=== PATIENT | male | born 1985 | race Caucasian/White ===

== ENCOUNTER 2016-12-25 12:09 | Observation (INO) | payer OTHER ==
[2016-12-25] VITALS (10 sets, daily range): BP systolic 106–136; BP diastolic 54–78; PULSE 78–99; RESP 15–20; Ht 177.8 cm; Wt 108.2 kg
[~2016-12-25] VITALS: Ht 177.8 cm; Wt 108.2 kg
--- NOTE | 2016-12-25 06:33 | HPN ---
Date/Time of Note Date/Time of Note DATE: 12/25/16 TIME: 06:33 Interval H&P Admission Note Pt. seen H&P reviewed: No system changes CRISTINA PATRICK MD Dec 25, 2016 06:33
[~2016-12-25 12:09] MED LIST: morphine 2 MG INJ IV PRN
[2016-12-25] MEDS ORDERED: GLYCOPYRROLATE 0.4 MG INJ ONE (14:56)
[2016-12-25] MEDS ORDERED: CEFAZOLIN 1 GM INJ ONE (14:57)
[2016-12-25] MEDS ORDERED: NEOSTIGMINE 3 MG/3 ML SYRINGE ONE (14:57)
[2016-12-25] MEDS ORDERED: PROPOFOL 20 ML ONE (14:57)
[2016-12-25] MEDS ORDERED: FENTAnyl 50 MCG/ML VIAL ONE ×5 (14:57→18:56)
[2016-12-25] MEDS ORDERED: ONDANSETRON 4 MG INJ ONE ×2 (14:57→18:56)
[2016-12-25] MEDS ORDERED: DEXAMETHASONE 4 MG/ML 1 ML INJ ONE (14:57)
[2016-12-25] MEDS ORDERED: ROCURONIUM 50 MG INJ ONE (14:57)
[2016-12-25] MEDS ORDERED: MIDAZOLAM 1 MG/ML 2 ML INJ ONE (14:57)
[2016-12-25] MEDS ORDERED: ROPIVACAINE 0.5 % 30 ML VIAL ONE (16:13)
[2016-12-25] MEDS ORDERED: SUGAMMADEX SODIUM 200 MG/2 ML VIAL IV ONE (18:24)
[2016-12-25] MEDS ORDERED: MEPERIDINE 25 MG INJ ONE (18:56)
[2016-12-25] MEDS ORDERED: DIPHENHYDRAMINE 50 MG INJ ONE (19:45)
[2016-12-25] MEDS ORDERED: KETOROLAC 30 MG INJ ONE (19:45)
[2016-12-25] MEDS ORDERED: OXYCODONE/ACETAMINOPHEN (5/325) TAB ONE (19:51)
[2016-12-25] MEDS ORDERED: oxyCODONE (CR) 10 MG TAB [oxyCONTIN] PO ONE (19:53)
[2016-12-25] MEDS ORDERED: morphine (1 MG/ML) 10ML SYRINGE IV ONE (20:09)
[2016-12-25] MEDS ORDERED: MOXIFLOXACIN 0.5% 3 ML OPH BOTH EYES STA (21:46)
[2016-12-25] MEDS ORDERED: TETRACAINE 0.5% 4 ML OPH BOTH EYES STA (21:46)
[2016-12-25] MEDS ORDERED: HYDROmorphONE 0.2 MG/ML PCA ONE (22:21)
[2016-12-25] MEDS ORDERED: DIPHENHYDRAMINE 50 MG INJ IV PRN (22:30)
[2016-12-25] MEDS ORDERED: NALOXONE (0.4 MG/ML) INJ IV PRN (22:30)
[2016-12-25] MEDS ORDERED: TETRACAINE 0.5% 4 ML OPH BOTH EYES PRN (22:30)
[2016-12-25] MEDS ORDERED: TRIMETHOBENZAMIDE 100 MG/ML VIAL IM PRN (22:30)
[2016-12-25] MEDS ORDERED: HYDROmorphONE 0.5 MG/0.5 ML SYG IV PRN ×2 (22:30)
[2016-12-25] MEDS ORDERED: ONDANSETRON 4 MG INJ IV PRN (22:30)
[2016-12-25] MEDS ORDERED: HYDROmorphONE 0.2 MG/ML PCA IV SCH (22:30)
[2016-12-25] MEDS ORDERED: CEFAZOLIN 1 GM/50 ML (PMX) 50 ML IVPB SCH (23:49)
[2016-12-26] VITALS (7 sets, daily range): BP systolic 114–135; BP diastolic 55–80; PULSE 93–99; RESP 18–20
[2016-12-26] MEDS: ERYTHROMYCIN 1 GM OPH OINT RIGHT EYE SCH ×5 (01:01→20:58)
[2016-12-26] MEDS: CEFAZOLIN 1 GM/50 ML (PMX) 50 ML IVPB SCH ×3 (05:27→20:57)
--- NOTE | 2016-12-26 06:59 | OPR ---
Date/Time of Note Date/Time of Note DATE: 12/25/16 TIME: 20:48 Operative Report Procedure Date: Dec 25, 2016 Preoperative Diagnosis Left ankle Maisonneuve fracture dislocation Postoperative Diagnosis Left ankle Maisonneuve fracture dislocation left ankle Left ankle Loose chondral fragment from the posterior lateral tibial plafond Operation/Procedure Performed Left ankle arthroscopy with extensive debridement Left ankle arthroscopy with loose body removal Left ankle open reduction internal fixation of syndesmosis Surgeon Holden Patrick MD Smoking Pipe Mounter None Anesthesia Type: general, other (Popliteal block) Anesthesiologist: Isaias Guzman M.D. Tourniquet Time: 34 minutes at 250 mmHg Estimated Blood Loss: minimal Transfusion none Specimen None Grafts/Implants Arthrex titanium tightropes 2 with titanium sideplate Complications none Pt Condition Post Procedure: stable Disposition: PACU Indications Patient is a 31-year-old gentleman who sustained a left ankle Maisonneuve fracture dislocation with x-rays showing widening of the medial clear space. Given the type of fracture pattern the patient was indicated for surgical fixation and management. Risk Note: Patient was explained the risks and benefits of surgery and the patient's nikolski language including not limited to infection, bleeding, injury to blood vessels, nerves, ligaments or tendons. Risks of anesthesia, deep vein thrombosis and need for reduce future surgery. Patient acknowledged these risk by signing the surgical consent form. Procedure Description The patient was met in the preoperative holding area, marked with the correct operative extremity confirmed with both patient and consent. The patient was then brought back in the operative theater, placed supine on operative table, given preoperative antibiotics and preoperative regional block anesthesia. The patient was then placed in the arthroscopic thigh song with all bony prominences well padded with a nonsterile tourniquet placed on the operative extremity. The patient was then prepped and draped in the normal sterile fashion. All parties in the room did a timeout and everyone agreed it was the correct patient, and extremity and procedure. Initial distraction was placed across the joint and the superficial peroneal nerve had been marked out prior to distraction, and using extreme caution to avoid any injury to the neurovascular structures, the anteromedial, anterolateral, and posterolateral portals were created in the standard fashion. The arthroscope was brought into the ankle and a 21-point exam was performed showing extensive hemorrhagic scar tissue and synovitis in the ankle with extensive scar tissue in both the medial, lateral, posterior and anterior gutters. Also noted was a 1.05 cm of loose body that was found in the posterior lateral aspect of the ankle, likely coming from the posterior lateral tibial plafond, which was removed during the case. The syndesmosis was extensively debrided and found to be unstable. After this was done, the ankle was irrigated thoroughly with normal saline and the arthroscopes were removed. At this point, the thigh song was removed and the patient was well padded under both extremities and patient was then reprepped and draped, and all gloves and instruments were changed. Attention was then turned initially to the syndesmotic injury. An incision was made over the the fibula. The incision was taken down to the fibula with care taken to avoid injury to the neurovascular structures. External rotation stress x-ray showed widening of the medial clear space. Using a 2 hole plate to titanium tightropes were placed across the syndesmosis in a divergent fashion. Fibular length and alignment and rotation had been re-achieved on fluoroscopy. Once this was shown, the wound was irrigated thoroughly. A manual external rotation stress xray was performed showing no further syndesmosis widening. Tourniquet had been brought and hemostasis had been achieved prior to the wound closure All wounds were thoroughly irrigated and closed with initially 2-0 Vicryl, followed by 3-0 Monocryl followed by 3-0 nylon in a vertical mattress fashion. All wounds were dressed with Xeroform, antibiotic ointment, 4 x 4s, 5 ABDs were placed and the patient was placed in a well-padded short leg splint. . The wounds were irrigated thoroughly prior to closure as well. All sponge and needle counts were correct. HOLDEN PATRICK MD Dec 26, 2016 06:59
--- NOTE | 2016-12-26 07:03 | PN ---
Date/Time of Note Date/Time of Note DATE: 12/26/16 TIME: 06:59 Assessment/Plan Lines/Catheters IV Catheter Type (from Nrsg): Peripheral IV Assessment/Plan Assessment/Plan Postop day #1 status post left ankle arthroscopy with extensive debridement, loose body removal and open reduction and internal rotation of syndesmotic injury secondary to Maisonneuve fracture dislocation - nwb to the lle - pt to gt - po and iv pain meds - anesthesia to manage the right eyelash morning swelling - dc home today ---- Yessy Patrick MD Subjective 24 Hr Interval Summary Patient was evaluated this morning after being admitted for pain control overnight. He reports his pain is not well-controlled today. He reports that his right eye which he noted to be slightly painful last night was improved this morning. He denies any fevers chills nausea or vomiting. Constitutional: improved Feeding: advancing diet Pain Control: mild Exam/Review of Systems Vital Signs Vitals Vital Signs Date Time Temp Pulse Resp B/P Pulse Ox O2 Delivery O2 Flow Rate FiO2 12/26/16 05:37 20 12/26/16 02:00 99 134/80 99 Nasal Cannula 12/25/16 23:00 98.1 2.0 Intake and Output 12/25/16 12/25/16 12/26/16 15:00 23:00 07:00 Intake Total 1800 ml 400 ml Output Total 15 ml Balance 1785 ml 400 ml Exam Constitutional: alert, oriented, well developed Musculoskeletal: other (LLe/ cast intact, toes wiggle, silt to the exposed toes , cr brisk, toes wwp) CRISTINA PATRICK MD Dec 26, 2016 07:03
--- NOTE | 2016-12-26 07:04 | RADRPT ---
PROCEDURE: Intraoperative imaging of the left ankle with fluoroscopy. CLINICAL INDICATION: Left ankle pain. Intraoperative. TECHNIQUE: 10 images of the left ankle were obtained in the operating room with an image intensifi er. No radiologist was in attendance. Fluoroscopy time is 32.9 seconds. COMPARISON: No prior study is available for comparison. FINDINGS: Surgical instruments are noted overlying the left ankle. Final images demonstrate interosseous fixation of the distal tibia and fibula. IMPRESSION: 1. Intraoperative imaging of the left ankle. RPTAT: QQ .Juan Quiroz MD, MD Date Time Electronically viewed and signed by .Juan Quiroz MD, MD on 12/26/2016 07:04 .R/
--- NOTE | 2016-12-26 07:04 | DS ---
Date/Time of Note Date/Time of Note DATE: 12/26/16 TIME: 07:03 Discharge Summary Admission/Discharge Info Admit Date/Time Dec 25, 2016 at 22:50 Discharge Date/Time 12/26/2016 Discharge Diagnosis Left ankle fracture dislocation Maisonneuve type Patient Condition: Good Procedures Left ankle arthroscopy with extensive debridement, loose body removal, open reduction internal fixation of syndesmotic injury Hospital Course Patient was admitted postop for pain control. Patient also complaining of right eye pain that per anesthesia was related to swelling in the eyelashes. On postop day #1 patient's pain was better controlled and his eye pain had resolved. Follow-up Plan With Dr. Patrick in 1 week Primary Care Provider David Arriaza Time spent on discharge: < 30 minutes CRISTINA PATRICK MD Dec 26, 2016 07:04
--- NOTE | 2016-12-26 07:06 | PDOCDIS ---
Discharge Instructions DIAGNOSIS Discharge Diagnosis Left ankle fracture dislocation Maisonneuve type CONDITION Patient Condition: Good HOME CARE INSTRUCTIONS: Diet Instructions: Regular ACTIVITY: Activity Restrictions: Avoid heavy lifting Do not Drive Do not operate Machinery Do not operate Power Tool Avoid Heavy Housework Keep Limb Elevated No Weight Bearing Bathing Restrictions: Shower FOLLOW UP/APPOINTMENTS Follow-up Plan With Dr. Patrick in 1 week CRISTINA PATRICK MD Dec 26, 2016 07:05
[2016-12-26] MEDS ORDERED: HYDR-902 PO (07:07)
[2016-12-26] MEDS: oxyCODONE 5 MG TAB PO PRN ×3 (07:39→18:10)
[2016-12-26] MEDS: KETOROLAC 30 MG INJ IV PRN (16:14)
--- NOTE | 2016-12-26 19:40 | OPPN ---
Date/Time of Note Date/Time of Note DATE: 12/26/16 TIME: 19:26 Event Note Anesthesia Follow Up Note, Post-Op I received a phone call from VENDING SUPERVISOR stating patient had burning in his right eye. I revisited the patient in PACU around 2200. Upon eye examination I noticed that his right lower lid and all its eyelashes were inverted touching his right eyeball. I manually reduced the inversion and ordered for Erythromycin ophthalmic ointment and tetracaine eye drops. I also discussed the situation with Dr Carreon who believed that eyelashes may have caused irritation. I explained this to the patient and his mother at bedside and asked them to continue the ophthalmic antibiotic for 3-5 days and only use the Tetracaine in extreme pain since it was only going to improve pain for 15 minutes. They were also instructed to see an material damage adjuster in the event that there were more pain, secretion or discoloration of cornea and they both admitted to do so. Isaias Valenzuela MD, M.D. Dec 26, 2016 19:40
[2016-12-26] MEDS: morphine 2 MG INJ IV PRN (20:58)
[2016-12-26] MEDS: ZOLPIDEM 5 MG TAB PO PRN ×2 (21:34→22:49)
[2016-12-27] MEDS: oxyCODONE 5 MG TAB PO PRN ×5 (01:49→18:15)
[2016-12-27 02:32] VITALS: BP 116/72; RESP 18
[2016-12-27] MEDS: morphine 2 MG INJ IV PRN (03:37)
[2016-12-27] MEDS: CEFAZOLIN 1 GM/50 ML (PMX) 50 ML IVPB SCH ×2 (04:44→14:00)
[2016-12-27 07:33] VITALS: BP 115/75; RESP 18
[2016-12-27] MEDS: ERYTHROMYCIN 1 GM OPH OINT RIGHT EYE SCH ×3 (08:39→17:00)
[2016-12-27 14:20] VITALS: BP 122/71; RESP 18
[2016-12-27] MEDS: KETOROLAC 30 MG INJ IV PRN (16:47)
--- NOTE | 2016-12-27 19:53 | PN ---
Date/Time of Note Date/Time of Note DATE: 12/27/16 TIME: 19:53 Assessment/Plan Lines/Catheters IV Catheter Type (from Nrsg): Saline Lock Beebe in Place (from Nrsg): No Assessment/Plan Assessment/Plan Postop day #2 status post left ankle arthroscopy with extensive debridement, loose body removal and open reduction and internal rotation of syndesmotic injury secondary to Maisonneuve fracture dislocation - nwb to the lle - pt to gt - po and iv pain meds - dc home today with wheelchair ---- Yessy Patrick MD Subjective 24 Hr Interval Summary Doing better. Pain is better controlled Exam/Review of Systems Vital Signs Vitals Vital Signs Date Time Temp Pulse Resp B/P Pulse Ox O2 Delivery O2 Flow Rate FiO2 12/27/16 14:20 98.1 78 18 122/71 97 12/26/16 02:00 Nasal Cannula 12/25/16 23:00 2.0 Intake and Output 12/26/16 12/26/16 12/27/16 15:00 23:00 07:00 Intake Total 1110 ml 1400 ml Output Total 700 ml Balance 410 ml 1400 ml Exam Constitutional: alert, oriented, well developed Musculoskeletal: other (LLe/ cast intact, toes wiggle, silt to the exposed toes , cr brisk, toes wwp) CRISTINA PATRICK MD Dec 27, 2016 19:53
== END 2016-12-27 19:30 | disposition home or self-care (01) ==
LOC: SDS 12:09 → SUR 12:09 → MS1 22:50 → SUR 22:50 → UNDOADMOB 22:50 → INTOOBSV 22:50 → MS1 12-26 00:17
PROVIDERS: ADMIT Orthopaedic Surgery; ATTEND Orthopaedic Surgery
DX: S82.862A Displaced Maisonneuve's fracture of left leg, initial encounter for closed fracture (principal); J45.909 Unspecified asthma, uncomplicated; Z91.048 Other nonmedicinal substance allergy status; W19.XXXA Unspecified fall, initial encounter; Y93.9 Activity, unspecified; Y99.9 Unspecified external cause status; Y92.009 Unspecified place in unspecified non-institutional (private) residence as the place of occurrence of the external cause
CPT/HCPCS: 27829; 29898; 73600; 82306; 97116; 97162; 97530; J0690; J1100; J1170; J1200; J1885; J2175; J2250; J2270; J2405; J2795; J3010; Z7500; Z7512; Z7610; G0378; J2710